=== PATIENT | male | born 1970 | race Caucasian/White ===

== ENCOUNTER → 2024-09-30 | Outpatient (RCR) | payer OTHER | LOC: PT 09-23 12:52 | PROVIDERS: ATTEND Orthopaedic Surgery Hand Surgery | DX: M75.01 Adhesive capsulitis of right shoulder (principal) ==

== ENCOUNTER 2024-10-07 13:00 | Outpatient (RCR) | payer OTHER | END 2024-10-30 | LOC: PT 13:00 | PROVIDERS: ATTEND Orthopaedic Surgery Hand Surgery | DX: M75.01 Adhesive capsulitis of right shoulder (principal) ==